=== PATIENT | male | born 1950 | race Caucasian/White ===

== ENCOUNTER 2018-08-16 08:09 | Emergency (ER) | payer BC, OTHER ==
[2018-08-16 08:28] VITALS: BP 140/93; PULSE 94; TEMP 98; BMI 25.8
--- NOTE | 2018-08-16 08:28 | PDOC ---
History of Present Illness - General Chief Complaint: Nasal Bleeding Stated Complaint: NOSE BLEED Time Seen by Provider: 08/16/18 08:11 History Source: Patient Exam Limitations: No Limitations - History of Present Illness Initial Comments: 08/16/18 08:25 68 y/o male with nose bleed since this morning. On Plavix and Aspirin. Denies headache, SOB or chest pain. Unable to stop the bleeding. No fever or chills. Theo blowing nose, but may have picked it. Severity: mild Associated Symptoms: denies: headaches Past History - Past Medical History Allergies/Adverse Reactions: Allergies Allergy/AdvReac Type Severity Reaction Status Date / Time Penicillins Allergy Hives Verified 08/16/18 08:10 Crabs Allergy Mild Hives Uncoded 08/16/18 08:10 Home Medications: Ambulatory Orders Allopurinol [Zyloprim -] 300 mg PO DAILY #0 tablet 06/10/13 Amlodipine Besylate [Norvasc -] 5 mg PO DAILY #0 tablet 06/10/13 Aspirin 81 mg PO DAILY #0 tab.chew 06/10/13 Losartan Potassium [Cozaar -] 50 mg PO DAILY #0 tablet 06/10/13 Clopidogrel Bisulfate [Plavix -] 75 mg PO ONCE 03/19/16 Metoprolol Succinate [Toprol Xl -] 50 mg PO ASDIR 03/19/16 Simvastatin [Zocor] 10 mg PO HS 03/19/16 Ubiquinol [Active-Q] 200 mg PO ASDIR 03/19/16 metFORMIN HCL [Metformin HCl] 1,000 mg PO BID 03/19/16 COPD: No Diabetes: Yes HTN: Yes Hypercholesterolemia: Yes - Surgical History Cardiac Surgery: Yes (bypass) - Suicide/Smoking/Psychosocial Hx Smoking Status: No Smoking History: Never smoked Have you smoked in the past 12 months: No Number of Cigarettes Smoked Daily: 0 Hx Alcohol Use: No Drug/Substance Use Hx: No Substance Use Type: None Hx Substance Use Treatment: No Review of Systems - Review of Systems Able to Perform ROS?: Yes Is the patient limited Yoruba proficient: No Constitutional: No: Chills, Fever HEENTM: Yes: Nose Bleeding. No: Nose Pain, Nose Congestion Respiratory: No: Cough, Shortness of Breath Cardiac (ROS): No: Chest Pain : No: Dysuria All Other Systems: Reviewed and Negative *Physical Exam - Vital Signs Last Vital Signs Temp Pulse Resp BP Pulse Ox 98.0 F 94 H 19 140/93 100 08/16/18 08:17 08/16/18 08:17 08/16/18 08:17 08/16/18 08:17 08/16/18 08:17 - Physical Exam General Appearance: Yes: Nourished, Appropriately Dressed, Mild Distress. No: Apparent Distress HEENT: positive: EOMI, MARILYN, Normal Voice, Symmetrical, Pharynx Normal, Tonsillar Erythema (left nostril with mild anterior bleeding, right nostril clear, turbinates inflammed left nostril). negative: Normal ENT Inspection, Nasal Congestion, Rhinorrhea Neck: positive: Trachea midline, Normal Thyroid, Supple. negative: Tender, Rigid, Carotid bruit Respiratory/Chest: positive: Lungs Clear, Normal Breath Sounds. negative: Chest Tender, Respiratory Distress Cardiovascular: positive: Regular Rhythm, Regular Rate, S1, S2. negative: Edema , JVD, Murmur Vascular Pulses: Femoral (R): 4+, Femoral (L): 4+, Carotid (R): 4+, Carotid (L) : 4+, Dorsalis-Pedis (R): 4+, Doralis-Pedis (L): 4+ Gastrointestinal/Abdominal: positive: Normal Bowel Sounds, Flat, Soft. negative : Tender, Organomegaly, Pulsatile Mass Lymphatic: negative: Adenopathy, Tenderness, Other Musculoskeletal: positive: Normal Inspection. negative: CVA Tenderness Extremity: positive: Normal Capillary Refill, Normal Inspection, Normal Range of Motion Integumentary: positive: Normal Color, Dry, Warm Neurologic: positive: [place] kura kaup[place] maori II-XII NML intact, Fully Oriented, Alert, Normal Mood/ Affect, Normal Response, Motor Strength 5/5 ED Treatment Course - ADDITIONAL ORDERS Additional order review: 08/16/18 08:[address] a rhino rocket in place to left nostril however bleeding has slowed down and patient wishes to hold off at this time. Risks and benefits explained to pt. No sign of posterior bleed noted. 08/16/18 08:55 No more nasal bleeding at this time. Patient wishes to go home at this time. If worsen will return to ER *DC/Admit/Observation/Transfer Diagnosis at time of Disposition: Epistaxis - Discharge Dispostion Disposition: HOME Condition at time of disposition: Stable Decision to Admit order: No - Referrals Referrals: Joann Connors [Primary Care Provider] - - Patient Instructions Printed Discharge Instructions: DI for Nosebleed Additional Instructions: Ice, Tylenol, rest No hot foods/drinks for 24 hrs If worsen apply ice and pressure for 20 minutes Return to ER if continues to bleed - Post Discharge Activity
== END 2018-08-16 09:01 | disposition home or self-care (01) ==
LOC: FER 08:09
DX: R04.0 Epistaxis (principal); E11.9 Type 2 diabetes mellitus without complications; I10 Essential (primary) hypertension; E78.00 Pure hypercholesterolemia, unspecified; Z95.1 Presence of aortocoronary bypass graft
CPT/HCPCS: 99281-25

== ENCOUNTER 2018-08-20 17:56 | Emergency (ER) | payer OTHER, MEDICARE ==
[2018-08-20 18:31] VITALS: BP 151/87; PULSE 91; TEMP 97.9; BMI 23.6
--- NOTE | 2018-08-20 19:01 | PDOC ---
History of Present Illness - General Chief Complaint: Nasal Bleeding Stated Complaint: NASAL BLEEDING Time Seen by Provider: 08/20/18 19:00 History Source: Patient Exam Limitations: No Limitations - History of Present Illness Initial Comments: Pt is a 68 yo M, with PMH of CAD s/p CABG, HTN, NIDDM, who is presenting with epistaxis x1.5 hours. Pt recently presented to [facility] (08/16) for the same complaint, and was discharged to home after the bleeding stopped, with the pt refusing rhino rocket at that time. The pt attempted to follow-up with his PCP this AM, but was unable to make an appointment today and then began bleeding again in the evening. The pt states he has been feeling light-headed and that he has been swallowing blood, but has only saturated 2 napkins with no clots. Pt denies any recent fevers/chills, headache, vertigo, vision changes, chest pain, palpitations, SOB, nausea/vomiting, abdominal pain, urinary symptoms , diarrhea/constipation, or leg swelling. 08/20/18 19:49 Pt denies any cigarette, alcohol, or drug use. Pt denies any recent travel or sick contacts. 08/20/18 22:10 Past History - Travel Traveled outside of the country in the last 30 days: No Close contact w/someone who was outside of country & ill: No - Past Medical History Allergies/Adverse Reactions: Allergies Allergy/AdvReac Type Severity Reaction Status Date / Time Penicillins Allergy Hives Verified 08/20/18 18:24 Crabs Allergy Mild Hives Uncoded 08/20/18 18:24 Home Medications: Ambulatory Orders Allopurinol [Zyloprim -] 300 mg PO DAILY #0 tablet 06/10/13 Amlodipine Besylate [Norvasc -] 5 mg PO DAILY #0 tablet 06/10/13 Aspirin 81 mg PO DAILY #0 tab.chew 06/10/13 Losartan Potassium [Cozaar -] 50 mg PO DAILY #0 tablet 06/10/13 Clopidogrel Bisulfate [Plavix -] 75 mg PO ONCE 03/19/16 Metoprolol Succinate [Toprol Xl -] 50 mg PO ASDIR 03/19/16 Simvastatin [Zocor] 10 mg PO HS 03/19/16 Ubiquinol [Active-Q] 200 mg PO ASDIR 06/28/16 metFORMIN HCL [Metformin HCl] 1,000 mg PO BID 03/19/16 Doxycycline Hyclate 100 mg PO BID 5 Days #9 tablet 08/20/18 Sodium Chloride Nasal Harrison [[place] Harrison Nasal Harrison -] 1 spray NS TID PRN #1 bottle 08/20/18 Cardiac Disorders: Yes (s/p CABG, CAD) COPD: No Diabetes: Yes (NIDDM) HTN: Yes Hypercholesterolemia: Yes - Surgical History Cardiac Surgery: Yes (bypass) - Immunization History Immunization Up to Date: Yes - Suicide/Smoking/Psychosocial Hx Smoking Status: No Smoking History: Never smoked Have you smoked in the past 12 months: No Number of Cigarettes Smoked Daily: 0 Hx Alcohol Use: No Drug/Substance Use Hx: No Substance Use Type: None Hx Substance Use Treatment: No Review of Systems - Review of Systems Able to Perform ROS?: Yes Is the patient limited Pashto proficient: No Constitutional: Yes: Weight Stable. No: Chills, Diaphoresis, Fever, Loss of Appetite, Malaise, Weakness HEENTM: Yes: Nose Bleeding (epistaxis of L nare, see HPI). No: Blurred Vision, Recent change in vision, Nose Pain, Nose Congestion, Throat Pain, Throat Swelling, Difficulty Swallowing Respiratory: No: Cough, Orthopnea, Shortness of Breath, Wheezing, Hemoptysis Cardiac (ROS): No: Chest Pain, Edema, Irregular Heart Rate, Lightheadedness, Palpitations, Syncope, Chest Tightness ABD/GI: Yes: Tarry Stools (after last visit in ER (08/16/18) due to swallowing blood from epistaxis). No: Blood Streaked Bowels, Constipated, Diarrhea, Difficulty Swallowing, Nausea, Poor Appetite, Poor Fluid Intake, Rectal Bleeding , Vomiting, Abdominal cramping : No: Burning, Dysuria, Frequency, Hematuria, Pain, Urgency Musculoskeletal: No: Back Pain, Joint Pain Integumentary: No: Bruising, Rash Neurological: No: Headache, Seizure, Weakness, Unsteady Gait, Ataxia, Dizziness Psychiatric: No: Change in Appetite Endocrine: No: Increased Urine, Change in Weight Hematologic/Lymphatic: Yes: Easy Bleeding (getting frequent nosebleeds). No: Anemia, Blood Clots, Easy Bruising All Other Systems: Reviewed and Negative *Physical Exam - Vital Signs Last Vital Signs Temp Pulse Resp BP Pulse Ox 97.9 F 91 H 16 151/87 100 08/20/18 18:24 08/20/18 18:24 08/20/18 18:24 08/20/18 18:24 08/20/18 18:24 - Physical Exam General Appearance: Yes: Nourished, Appropriately Dressed. No: Apparent Distress (Pt has bleeding controlled, vitals stable, sitting comfortably) HEENT: positive: EOMI, MARILYN, Normal Voice, Symmetrical, TMs Normal, Pharynx Normal, Hearing Grossly Normal, Other (dried blood in L nare in the anterior region, no posterior bleed noted. Inflamed, slightly erythematous L nasal turbinate. No blood in oropharynx.). negative: Normal ENT Inspection, Scleral Icterus (R), Scleral Icterus (L), Muffled/Hoarse voice, Pharyngeal Erythema, Tonsillar Exudate, Tonsillar Erythema, Rhinorrhea, TM Bulging, TM Dull, TM Erythema Neck: positive: Trachea midline, Normal Thyroid, Supple. negative: Tender, Rigid, Lymphadenopathy (R), Lymphadenopathy (L) Respiratory/Chest: positive: Lungs Clear, Normal Breath Sounds. negative: Chest Tender, Respiratory Distress, Accessory Muscle Use, Crackles, Wheezing Cardiovascular: positive: Regular Rhythm, Regular Rate, S1, S2. negative: Edema , JVD, Murmur Vascular Pulses: Carotid (R): 4+, Carotid (L): 4+ Gastrointestinal/Abdominal: positive: Normal Bowel Sounds, Flat, Soft. negative : Tender, Organomegaly, Pulsatile Mass, Distended, Guarding, Rebound Rectal Exam: positive: deferred Lymphatic: negative: Adenopathy, Tenderness Musculoskeletal: positive: Normal Inspection. negative: CVA Tenderness Extremity: positive: Normal Capillary Refill, Normal Inspection, Normal Range of Motion, Pelvis Stable. negative: Tender, Delayed Capillary Refill, Pedal Edema Integumentary: positive: Normal Color, Dry, Warm, Other (mild decreased skin turgor). negative: Jaundice, Clammy, Diaphoresis, Petechiae, Rash, Ecchymosis Neurologic: positive: fourchette sewer II-XII NML intact, Fully Oriented, Alert, Normal Mood/ Affect, Normal Response, Motor Strength 5/5 Moderate Sedation - Procedure Monitoring Vital Signs: Procedure Monitoring Vital Signs Temperature 97.9 F 08/20/18 18:24 Pulse Rate 91 H 08/20/18 18:24 Respiratory Rate 16 08/20/18 18:24 Blood Pressure 151/87 08/20/18 18:24 O2 Sat by Pulse Oximetry (%) 100 08/20/18 18:24 ED Treatment Course - LABORATORY CBC & Chemistry Diagram: 08/20/18 19:40 Medical Decision Making - Medical Decision Making Pt was seen at bedside, also will be seen by attending Dr. Samuel. Pt presenting with epistaxis x1.5 hours. Pt recently presented to [place] [facility] ( 08/16) for the same complaint, and was discharged to home after the bleeding stopped, with the pt refusing rhino rocket at that time. The pt attempted to follow-up with his PCP this AM, but was unable to make an appointment today and then began bleeding again in the evening. The pt states he has been feeling light-headed and that he has been swallowing blood, but has only saturated 2 napkins with no clots. Pt denies any recent fevers/chills, headache, vertigo, vision changes, chest pain, palpitations, SOB, nausea/vomiting, abdominal pain, urinary symptoms, diarrhea/constipation, or leg swelling. When I asked the pt to show how he has been applying pressure, the pt leaned his head backwards (neck extension) and was holding the posterior/bridge of the nose. Pt was advised proper technique to control epistaxis and there is no active bleeding at this time. PE showed dried blood in anterior left nare, mild erythema/swelling of the L nasal turbinate, no dried blood or edema in the oral cavity. Pt appeared mildly dry (mild decreased skin turgor), pt has HR 91. Considering anterior bleed secondary to nasal picking/supra-therapeutic anti- coagulation. Ordered work-up including CBC, PT/INR, PTT to r/o . Provided 500 mL IV NS and PO water. Will continue to reassess pt and monitor for symptomatic improvement. 08/20/18 19:36 Labs sent and pending. 500 mL IV NS hanging. 08/20/18 19:48 (entered later) CBC and coags WNL. Before leaving the department, pt continued to have anterior bleeding in the L nare. Pt was provided Afrin in the L nare. Rhino rocket packing was placed in the L nare with 1 mL 1% lidocaine and 2 cc NS. Pressure was applied via 10 cc syringe. Pt had mild oozing from R nare after the packing was placed. Pt was provided Afrin in the R nare and the bleeding was controlled. Pt provided first dose of 100 mg PO doxycycline in the ER. Sent 100 mg PO doxycycline BID x5 days (9 tablets) and ocean spray nasal saline to pt pharmacy. Pt also provided vaseline packets to keep nares moist. Considering normal lab results and control of bleeding, pt can be discharged to home with follow-up. Pt advised to follow-up with PCP in 1-2 days and has been referred to Dr. Abbasi (ENT). Strict return precautions provided with pt understanding. 08/21/18 00:34 *DC/Admit/Observation/Transfer Diagnosis at time of Disposition: Epistaxis not due to trauma - Discharge Dispostion Disposition: HOME Condition at time of disposition: Improved Decision to Admit order: No - Prescriptions Prescriptions: Doxycycline Hyclate 100 mg PO BID 5 Days #9 tablet Sodium Chloride Nasal Harrison [[place] Harrison Nasal Harrison -] 1 spray NS TID PRN #1 bottle PRN Reason: Dry Skin - Referrals Referrals: Joann Connors [Primary Care Provider] - Sanjeev Abbasi MD [Staff Physician] - - Patient Instructions Printed Discharge Instructions: DI for Nosebleed Additional Instructions: You were seen in the ER today for nosebleed. The results of your labs today were normal. Please follow-up with your primary care doctor and ENT doctor Elroy within 1-2 days to discuss your visit and make sure your symptoms have improved. Please return to the ER if you have any worsening bleeding, headache, development of fevers or chills, loss of consciousness, inability to tolerate food or fluids, or any other concerns. - Post Discharge Activity
--- NOTE | 2018-08-20 19:18 | PDOC ---
Attending Attestation - Resident Resident Name: Amanda Frye - ED Attending Attestation I have performed the following: I have examined & evaluated the patient, The case was reviewed & discussed with the resident, I agree w/resident's findings & plan, Exceptions are as noted - Medical Decision Making 08/20/18 19:18 I, Dr. Ava Samuel, DO, attest that this document has been prepared under my direction and personally reviewed by me in its entirety. I further attest, that it accurately reflects all work, treatment, procedures and medical decision -making performed by me. 08/20/18 20:35 68yo male with hx of CAD on ASA and Plavix with L nare bleeding -seen in ED earlier this week -restarted bleeding -oozing in the ER -will place rapid rhino -will send labs -will monitor and reassess -will need ENT follow up <Ava Samuel - Last Filed: 08/20/18 20:35> - HPI HPI: 08/20/18 20:40 The patient is a 68 year old male with a significant past medical history of HTN , HLD, Diabetes, on plavix and aspirin who presents to the ED with nasal bleeding since earlier today. Patient reports nasal bleeding from his left nare. Patient was seen in the ED on 08/16/18 for similar symptoms. Denies fever or chills. Denies any other symptoms. - Physicial Exam PE: 08/20/18 20:40 Constitutional: Awake, alert, oriented. No acute distress. Head: Normocephalic. Atraumatic Eyes: PERRL. EOMI. Conjunctivae are not pale. ENT: + left nare bleeding. Mucous membranes are moist and intact. Posterior pharynx without exudates or erythema. Uvula midline. Neck: Supple. Full ROM. No lymphadenopathy. Cardiovascular: Regular rate. Regular rhythm. S1, S2 regular. Distal pulses are 2+ and symmetric. Pulmonary/Chest: No evidence of respiratory distress. Clear to auscultation bilaterally No wheezing, rales or rhonchi. Abdominal: Soft and non-distended. There is no tenderness. No rebound, guarding or rigidity. No organomegaly. No palpable masses. Good bowel sounds. Back: No CVA tenderness. Musculoskeletal: No edema. No cyanosis. No clubbing. Full range of motion in all extremities. Nocalf tenderness. Radial/pedal pulses are intact and 2+ bilaterally Skin: Skin is warm and dry. No petechiae. No purpura. Neurological: Alert and oriented to person, place, and time. Cranial nerves II -XII are grossly intact. Normal speech. Strength is grossly symmetric. No sensory deficits. Psychiatric: Good eye contact. Normal interaction, affect and behavior. <Saurav Stephens - Last Filed: 08/20/18 20:40> Attestations - Attestations 08/20/18 20:40 Documentation prepared by Saurav Stephens, acting as medical physiologist for vAa Samuel DO <Saurav Stephens - Last Filed: 08/20/18 20:40>
[2018-08-20] MEDS ORDERED: SODIUM CHLORIDE 500 ML IV STA (19:24)
[2018-08-20 19:58] LABS: BASO % 0.3 % (0-2.0); EOS % 1.7 % (0-4.5); HEMATOCRIT 39.4 % (35.4-49); HEMOGLOBIN 13.8 GM/dL (11.7-16.9); MCH 34.4 pg (25.7-33.7); MCHC 35.1 g/dl (32.0-35.9); MEAN CELL VOLUME 98.1 fl (80-96); MEAN PLT VOLUME 9.7 fl (7.5-11.1); MONO % 4.7 % (3.8-10.2); NEUT % 83.3 % (42.8-82.8); PLATELET COUNT 151 K/MM3 (134-434); RBC 4.02 M/mm3 (4.00-5.60); RDW 13.6 % (11.9-15.9); WHITE BLOOD COUNT 6.4 K/mm3 (4.0-10.0)
[2018-08-20] MEDS ORDERED: LIDOCAINE HCL 1%, 10 MG/ML (50 mL VIAL) SQ ONE (20:04)
[2018-08-20] MEDS ORDERED: OXYMETAZOLINE 0.05% NASAL SOLUTION 15 ML BOTTLE NS ONE (20:04)
[2018-08-20] MEDS ORDERED: LIDOCAINE HCL 1%, 10 MG/ML (20ML VIAL) ONE (20:06)
[2018-08-20 20:08] LABS: INR 0.87 (0.83-1.09); PROTHROMBIN TIME (PATIENT) 10.2 SEC (9.7-13.0)
[2018-08-20 20:11] LABS: ACTIVATED PTT 28.9 SECONDS (25.2-36.5)
[2018-08-20] MEDS ORDERED: DOXYCYCLINE HYCLATE 100 MG CAPSULE PO ONE ×2 (20:32→20:36)
== END 2018-08-20 20:47 | disposition home or self-care (01) ==
LOC: JER 17:56
PROC: 093K7ZZ Control Bleeding in Nasal Mucosa and Soft Tissue, Via Natural or Artificial Opening (ICD-10-PCS; principal; 2018-08-20)
DX: R04.0 Epistaxis (principal); I25.10 Atherosclerotic heart disease of native coronary artery without angina pectoris; I10 Essential (primary) hypertension; Z95.1 Presence of aortocoronary bypass graft; E11.9 Type 2 diabetes mellitus without complications; Z79.84 Long term (current) use of oral hypoglycemic drugs; E78.5 Hyperlipidemia, unspecified
CPT/HCPCS: 36415; 85025; 85610; 85730; 99282-25; J7030

== ENCOUNTER 2018-10-19 08:32 | Emergency (ER) | payer OTHER, MEDICARE ==
--- NOTE | 2018-10-19 08:43 | PDOC ---
History of Present Illness - General Chief Complaint: Nasal Bleeding Stated Complaint: nose bleeding from left nare Time Seen by Provider: 10/19/18 08:43 - History of Present Illness Initial Comments: 10/19/18 09:20 68 yo M, with PMH of CAD s/p CABG, HTN, NIDDM On aspirin and Plavix presents to the emergency department with one-day history of bleeding from his left nostril. Patient often gets nosebleeds especially in the winter this is his third or fourth visit over the last several years for the same. No difficulty breathing swallowing well-appearing symptoms are mild to moderate persistent constant with no exacerbating or relieving factors. Past History - Past Medical History Allergies/Adverse Reactions: Allergies Allergy/AdvReac Type Severity Reaction Status Date / Time Penicillins Allergy Hives Verified 10/19/18 08:37 Crabs Allergy Mild Hives Uncoded 08/20/18 18:24 Home Medications: Ambulatory Orders Allopurinol [Zyloprim -] 300 mg PO DAILY #0 tablet 06/10/13 Amlodipine Besylate [Norvasc -] 5 mg PO DAILY #0 tablet 06/10/13 Aspirin 81 mg PO DAILY #0 tab.chew 06/10/13 Clopidogrel Bisulfate [Plavix -] 75 mg PO ONCE 03/19/16 Metoprolol Succinate [Toprol Xl -] 50 mg PO ASDIR 03/19/16 Simvastatin [Zocor] 10 mg PO HS 03/19/16 Ubiquinol [Active-Q] 200 mg PO ASDIR 03/19/16 metFORMIN HCL [Metformin HCl] 750 mg PO BID 03/19/16 Finasteride 1 mg PO DAILY 10/19/18 Cardiac Disorders: Yes (s/p CABG, CAD) COPD: No Diabetes: Yes (NIDDM) HTN: Yes Hypercholesterolemia: Yes Other medical history: epistaxis - Surgical History Cardiac Surgery: Yes (bypass) - Immunization History Immunization Up to Date: Yes - Suicide/Smoking/Psychosocial Hx Smoking Status: No Smoking History: Former smoker Have you smoked in the past 12 months: No Number of Cigarettes Smoked Daily: 0 If you are a former smoker, when did you quit?: 30 years ago Information on smoking cessation initiated: No Hx Alcohol Use: No Drug/Substance Use Hx: No Substance Use Type: None Hx Substance Use Treatment: No Review of Systems - Review of Systems Comments:: 10/19/18 10:11 ROS: A complete review of 10 out of 10 review of systems is taken and is negative apart from what is previously mentioned below and in the HPI. *Physical Exam - Vital Signs Last Vital Signs Temp Pulse Resp BP Pulse Ox 98.3 F 80 18 156/91 98 10/19/18 08:36 10/19/18 08:36 10/19/18 08:36 10/19/18 08:36 10/19/18 08:36 - Physical Exam Comments: 10/19/18 10:12 Vitals: Triage Vital signs reviewed General Appearance: no acute distress, well nourished well developed, Head: Atraumatic, Eyes: Pupils equal reactive round, extraocular movement intact Nose: Nares patent bilaterally;no nasal congestion no septal hematoma small bleeding vessel on the septum side of the left there are posteriorly Throat: Posterior oropharynx without erythema, mucous membranes moist, Neck: Supple;No Nucal rigidity Chest Wall: Nontender Cardiac: Regular rate and rhythym], no murmurs, no rubs, no gallops, Lungs: Clear to auscultation bilateral, good air movement bilaterally, Extremities: Full range of motion to all extremities, no cyanosis, clubbing, or edema Skin: Warm and dry, no rashes or lesions, no rash, no petechiae Psych: normal mood, normal affect Moderate Sedation - Procedure Monitoring Vital Signs: Procedure Monitoring Vital Signs Temperature 98.3 F 10/19/18 08:36 Pulse Rate 80 10/19/18 08:36 Respiratory Rate 18 10/19/18 08:36 Blood Pressure 156/91 10/19/18 08:36 O2 Sat by Pulse Oximetry (%) 98 10/19/18 08:36 Medical Decision Making - Medical Decision Making 10/19/18 10:06 Afrin and pressure applied for 30 minutes bleeding has almost completely stopped small vessel identified posteriorly septally cauterization attempted patient still with very small trickle of blood intermittent that he feels in the back of his throat was able to obtain an appointment today with his ENT at 2 PM we discussed pros and cons of packing now patient would prefer to wait until 2 PM to see the ENT to see if he can avoid packing If not or if any bleeding worsens [place] return to the emergency department immediately Findings, the need for follow-up and strict return instructions discussed with patient. 10/19/18 17:24 Reevaluation just prior to leaving the ED re-bleeding occurred. This time patient packed with Rhino Rocket to left nostril. With good hemostasis. He will still follow-up this afternoon with ENT. *DC/Admit/Observation/Transfer Diagnosis at time of Disposition: Epistaxis - Discharge Dispostion Disposition: HOME Condition at time of disposition: Stable Decision to Admit order: No - Referrals Referrals: Joann Connors [Primary Care Provider] - Miguel Dee MD [Staff Physician] - - Patient Instructions Printed Discharge Instructions: Nosebleed Additional Instructions: Follow-up today at 2 PM with ENT. If rebleeding occurs at home hold pressure. For any severe repleting please return to the emergency department immediately. - Post Discharge Activity
[2018-10-19 08:45] VITALS: TEMP 98.3; BMI 24.3
[2018-10-19] MEDS ORDERED: OXYMETAZOLINE 0.05% NASAL SOLUTION 15 ML BOTTLE NS ONE (08:48)
[2018-10-19] MEDS ORDERED: SILVER NITRATE 75% APPLIC STCK 1 PKT EACH TP ONE (09:38)
[2018-10-19] MEDS ORDERED: OXYMETAZOLINE 0.05% NASAL SOLUTION 15 ML BOTTLE NS PRN (09:38)
[2018-10-19] MEDS ORDERED: SILVER NITRATE 75% APPLIC STCK 1 PKT EACH ONE (09:40)
[2018-10-19 10:49] VITALS: BP 147/90; PULSE 77
== END 2018-10-19 10:50 | disposition home or self-care (01) ==
LOC: SUPCPDRO 08:32 → FER 08:32
DX: R04.0 Epistaxis (principal); I10 Essential (primary) hypertension; I25.10 Atherosclerotic heart disease of native coronary artery without angina pectoris; E11.9 Type 2 diabetes mellitus without complications
CPT/HCPCS: 99282-25